=== PATIENT | male | born 1940 | race Caucasian/White ===

== ENCOUNTER 2017-05-25 06:22 | Inpatient (IN) | payer OTHER ==
[~2017-05-25] VITALS: Ht 172.7 cm; Wt 86.3 kg
--- NOTE | ~2017-05-25 | CT4 ---
[facility] A Service of [facility] RADIOLOGY TEXT RESULTS PATIENT: DOMINIQUE KEATING LOCATION: [facility] 564-01 : 39 UNIT #: [id number] AGE: [address]: James Kaufman MD SEX: M ORDER DR: [id number] [facility] [address] [place], [place] [address] [id number] I MR#: [id number] Acc #: [id number] NAME: DOMINIQUE KEATING. : 1940 SEX: M STUDY DATE/TIME: 05/25/2017 17:58 UNIT: [facility] ROOM: [facility] STUDY DESCRIPTION: CT Abd and Pelv Wo Cont Attending Physician: James Kaufman M.D. Referring Physician: James Kaufman M.D. Ordering Physician: Goran Castro M.D. Primary Care Physician: Inderjit Garibay M.D. MEDICAL IMAGING REPORT This report is preliminary unless electronic signature is present EXAM Abdomen and pelvis CT scan without contrast HISTORY Hematuria today. Patient had a heart stent put in today, heart catheter procedure today. History of hypertension and appendectomy. TECHNIQUE CT abdomen and pelvis was performed without IV or oral contrast media. I believe this was intended to be a urinary tract stone protocol study but there is still IV contrast media being excreted from the patient's recent cardiac catheterization and therefore, this study cannot evaluate for urinary tract calculus disease. The study should be repeated if this is the concern after the contrast is clear. This CT exam was performed with one or more of the following radiation dose reduction techniques: automatic exposure control, adjustment of mA and/or kV according to patient size, and iterative reconstruction. COMPARISON STUDIES Comparison study is from 2009. FINDINGS There is infiltrate in the left lower lobe which could be aspiration or pneumonia, possibly a small amount of atelectasis. A smaller infiltrate is seen at the right base. There is a small dependent pleural effusion on the left. Tiny dependent pleural effusion on the right. There are coronary artery calcifications present. Evaluation of the unenhanced abdomen shows a loop of colon interposed anterior to the liver. Liver is otherwise unremarkable on this unenhanced exam. The gallbladder, spleen and adrenal glands are unremarkable. [facility] A Service of [facility] RADIOLOGY TEXT RESULTS PATIENT: DOMINIQUE KEATING LOCATION: [facility] 564-01 : 39 UNIT #: [id number] AGE: [address]: James Kaufman MD SEX: M ORDER DR: Stomach is quite distended with debris and fluid. Please correlate for any clinical concern for gastroparesis. There is contrast in the right renal collecting system. There may also be some parapelvic cysts. There is no suspicion for hydronephrosis. On the left, there is a large parapelvic cyst, about 5.4 cm in diameter. There is a second exophytic cyst from the lower pole left kidney, about 4.4 cm in diameter. The left renal collecting system shows contrast. There is some mass effect on the collecting systems by the large parapelvic cysts but there is no hydronephrosis. There are extensive atherosclerotic vascular calcifications present. 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 Evaluation of the pelvis shows marked enlargement of the prostate gland protruding into the bladder base. Measurements are at least 7.1 cm SI dimension, 6.4 cm ML dimension, 5.9 cm AP dimension. Further evaluation is recommended by service. There is a large amount of stool in the rectum. There is no free fluid in the pelvis. The colon is somewhat redundant. Patient has had an appendectomy by history. There is nothing to suggest small bowel obstruction. Small fat-containing inguinal hernias appreciated bilaterally. There is asymmetric atrophy of the musculature right-sided gluteus psoas region consistent with polio history. The pancreas is partially fatty replaced. Considerable degenerative change in the lumbar spine with exaggerated lumbar lordosis. Also, levoconvex scoliosis. No free air or drainable fluid collection is suspected. IMPRESSION 1. The study is ordered as a urinary tract stone protocol, presumably to evaluate for stone disease in the setting of hematuria. Unfortunately, there is no IV contrast media in the collecting systems and bladder from the patient's recent cardiac catheterization, so this study does not evaluate for stone disease. If this is the concern, the study should be repeated without contrast after the contrast has cleared. 2. Prostate gland is markedly enlarged elevating the bladder base and protruding into the bladder base with lobulation. This could be due to prostatic hyperplasia but foci of malignancy not excluded. Please evaluate further clinically. 3. Airspace disease seen at the left base which is patchy and aspiration or pneumonia is in the differential. Small amount of airspace disease at the right base. Small left and tiny right dependent pleural effusions present. 4. Study is limited by the lack of IV and oral contrast media for evaluation for pathology other than urinary tract calculus disease. Patient is post-appendectomy by history. There is nothing to suggest bowel obstruction, though there is a large amount of stool in the rectum. 5. Stomach is enlarged with debris. Please correlate for history or recent meal versus concern for gastroparesis. 6. Asymmetric muscular atrophy right side psoas and gluteus musculature consistent with known history of right lower extremity involvement with polio. Extensive degenerative change of the spine. [facility]. [facility] A Service of [facility] RADIOLOGY TEXT RESULTS PATIENT: DOMINIQUE KEATING LOCATION: [place] [address] : 39 UNIT #: [id number] AGE: [address]: James Kaufman MD SEX: M ORDER DR: 7. Large left renal cysts. STAT * RESULT Dictated by... Savanna Denise M.D. THIS IS AN ELECTRONICALLY VERIFIED REPORT Savanna Denise M.D. at 05/25/2017 10:59 PM BRI/aishwarya TD: 05/25/2017 19:28 JOB #: [id number] MEDICAL IMAGING REPORT Page 1 of 1 COPY
--- NOTE | ~2017-05-25 | TH ---
Unit #: [id number] #: [id number] Patient: JAY KEATING [id number] [address] [address] [id number] I MR#: [id number] NAME: DOMINIQUE KEATING. : 1940 SEX: M STUDY DATE/TIME: 05/25/2017 UNIT: [facility] ROOM: 564 STUDY DESCRIPTION: Lexiscan stress test - Nuclear Attending Physician: James Kaufman M.D. Referring Physician: James Kaufman M.D. Primary Care Physician: Inderjit Garibay M.D. CARDIOLOGY REPORT PROCEDURE PERFORMED Lexiscan Cardiolite stress test - Nuclear portion. PROCEDURE Using technetium 99m-labeled Cardiolite, rest and stress SPECT images were obtained. Multiple SPECT images were obtained in various views, including horizontal and vertical long axis and short axis views of the left ventricle. Images were obtained by gated SPECT method. The patient was administered 10.47 mCi of Cardiolite at rest. The patient was administered 32.2 mCi of Cardiolite after Lexiscan infusion was completed. On the stress images, there is an extremely large area of severely decreased tracer uptake activity involving the anterolateral and the entire lateral wall of the left ventricle. The rest images show normal perfusion. Comparing the rest and stress images, there is an extremely large area of stress-induced ischemia involving the anterolateral and the lateral wall of the left ventricle. The left ventricular ejection fraction is calculated to be 66%. There is septal hypokinesis and lateral wall hypokinesis noted. The left ventricular cavity is moderately dilated post stress. CONCLUSION 1. Suspicion for an extremely large area of stress-induced ischemia involving the anterolateral and the lateral wall of the left ventricle. 2. The left ventricular ejection fraction is calculated to be 66%. 3. There is septal and lateral wall hypokinesis noted. 4. There is significant left ventricular cavity dilatation post stress. 5. High suspicion for significant coronary artery disease. The patient is being [facility] for cardiac catheterization. Dictated by.Brenda Castellanos TD: 05/25/2017 16:20 JOB #: [id number] Unit #: [id number] #: [id number] Patient: RISHABHJAY Chet CARDIOLOGY REPORT Page 1 of 1 X Clementina Garcia MD <ELECTRONICALLY SIGNED> 06/30/17 1524 CARDIOLOGY REPORT
--- NOTE | ~2017-05-25 | CO ---
Unit #: [id number] #: [id number] Patient: DOMINIQUE KEATING [id number] [address] [place], [place] [address] [id number] I MR#: [id number] NAME: DOMINIQUE KEATING. ROOM: 564 Age: 76 Sex: M Admission Date: 05/25/2017 : 1940 Attending Physician: James Kaufman M.D. Primary Care Physician: Inderjit Garibay M.D. Consultation Date: 05/26/2017 CONSULTATION REPORT REASON FOR CONSULTATION Gross hematuria. 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 He has prostatism, takes tamsulosin 0.4 mg daily, but had no new voiding symptoms and has had no fever, chills or dysuria. He gets up two to three times at night, has occasional urgency but by day no hesitancy and a good stream. He did see my partner, Dr. Talamantes, several months ago for a PSA of 4, thought best observed. He has seen me through the previous care of his who now has Alzheimer's. PAST MEDICAL HISTORY 1. Coronary disease. 2. Hypertension. 3. Arthritis. 4. Hyperlipidemia. 5. Polio, right lower extremity. SURGERIES 1. Appendectomy. 2. CABG in 1994. MEDICATIONS Medications on admission: 1. Coumadin. 2. Fish oil. 3. Co enzyme Q. 4. Lopressor. 5. Lipitor. 6. Flomax as noted. 7. Now he has been started on Plavix also. ALLERGIES None known. FAMILY HISTORY Negative for prostate cancer. SOCIAL HISTORY Unit #: [id number] #: [id number] Patient: DOMINIQUE KEATING , nonsmoker. REVIEW OF SYSTEMS Arthritis of the shoulder, sleep apnea and the above complaints. PHYSICAL EXAMINATION GENERAL: The patient is a well appearing, tall man with a right leg brace. ABDOMEN: Soft, nontender. PHALLUS: Normal circumcised testes, normal descended. He requested a digital exam and prostate is indeed firm in the right lobe asymmetrically. DIAGNOSTIC STUDIES LABORATORY: Urinalysis - 5-10 RBCs, otherwise normal. BUN 20, creatinine 1.2, INR 1.9 down from 2.3. Platelets 93, hemoglobin 13, PSA was 4.14 on 05/27/14 also. IMAGING: CT scan without contrast shows no clear stone, mass or hydronephrosis and does show a markedly large prostate. Residual contrast in the collecting system and bladder, however, does not exclude stone. IMPRESSION 1. Transient gross hematuria ascribable to high dose anticoagulation at this point but ideally evaluation should be completed. 2. Abnormal digital examination, history of elevated PSA at advanced age and certainly chronic anticoagulation and now Plavix contraindicating any contemplated biopsy. PLAN May discharge home from viewpoint. Will tentatively plan to repeat scan without and with IV contrast, creatinine permitting. See patient back for cystoscopic exam and possible further PSA followup. Thank you, James, for the consultation. Dictated by... Goran Castro M.D. JAZMIN/franklyn TD: 05/27/2017 10:37 JOB #: [id number] CONSULTATION REPORT Page 1 of 1 X Goran Castro MD X CONSULTATION REPORT
--- NOTE | ~2017-05-25 | EKG ---
PATIENT: DOMINIQUE KEATING UNIT #: [id number] Ventricular Rate: 56 BPM Atrial Rate: 56 BPM P-R Interval: 146 ms QRS Duration: 80 ms Q-T Interval: 488 ms QTC Calculation(Bezet): 470 ms P [place]: 30 degrees Calculated R [place]: 20 degrees Calculated T [place]: 4 degrees Diagnosis Line: Sinus bradycardia with sinus arrhythmia Diagnosis Line: Nonspecific ST and T wave abnormality Diagnosis Line: Prolonged QT Diagnosis Line: Abnormal ECG Diagnosis Line: When compared with ECG of 25-MAY-2017 11:48, Diagnosis Line: (unconfirmed) Diagnosis Line: Premature atrial complexes are no longer Present Diagnosis Line: Confirmed by HOWARD IBRAHIM MD ([id number]) on Diagnosis Line: 05/25/2017 10:49:50 PM INTERPRETING MD: JB
--- NOTE | ~2017-05-25 | ST ---
Unit #: [id number] #: [id number] Patient: DOMINIQUE KEATING [id number] [place] [id number] [facility] [place], [place] [address] [id number] O MR#: [id number] NAME: DOMINIQUE KEATING. : 1940 SEX: M STUDY DATE/TIME: 05/25/2017 UNIT: [facility] ROOM: STUDY DESCRIPTION: Lexiscan stress test Attending Physician: James Kaufman M.D. Referring Physician: James Kaufman M.D. Primary Care Physician: Inderjit Garibay M.D. CARDIOLOGY REPORT PROCEDURE PERFORMED Lexiscan Cardiolite stress test. REPORT Baseline EKG - Normal sinus rhythm with ventricular rate 75 beats per minute, left atrial abnormality, nondiagnostic Q waves in inferior leads, T wave inversion in inferior leads with some nonspecific ST-T wave abnormalities in lateral leads. Lexiscan is a 4-minute test with Lexiscan being injected within the first minute, followed by Cardiolite. Within 1 minute and 15 seconds, the patient started having long runs of ventricular tachycardia as long as 20 beats. The patient's blood pressure decreased to 75/80. MET team was called. IV amiodarone, 150 mg, bolus was given, followed by amiodarone drip per protocol. Two grams of IV mag was given. Labs have been drawn to check all of his electrolytes and CBC. The patient also had a normal saline bolus of 500 mL. His blood pressure went to 126/77 mmHg. Within 10 minutes into the test, his rhythm stabilized. He remained in normal sinus rhythm with frequent premature atrial contractions and occasional premature ventricular contractions. He continued to have T wave inversion in inferior leads and also some T wave inversion, downsloping in the anterolateral leads. The patient denied having any chest pain, but he was lightheaded and weak, especially when he was having the long runs of ventricular tachycardia. Cardiolite was injected after Lexiscan within the first minute of the test. Radionuclide test pending. Please correlate with nuclear images. The maximum blood pressure response was 154/74. Maximum heart rate was 190 beats per minute, and that was when he was having ventricular tachycardia. The plan is for the patient to have a heart catheterization later today by Dr. Ummat. Further recommendations pending. Dictated by... Mami Flowers A.P.R.N. for Brenda Mclain/yann TD: 05/25/2017 11:16 JOB #: [id number] Unit #: [id number] #: [id number] Patient: DOMINIQUE KEATING CARDIOLOGY REPORT Page 1 of 1 X Mami Flowers APRN CARDIOLOGY REPORT
--- NOTE | ~2017-05-25 | DS ---
Unit #: [id number] #: [id number] Patient: DOMINIQUE KEATING [id number] [address] [address] [id number] I MR#: [id number] NAME: DOMINIQUE KEATING. ROOM: 564 Age: 76 Sex: M Admission Date: 05/25/2017 : 1940 Discharge Date: 05/27/2017 Attending Physician: James Kaufman M.D. Referring Physician: James Kaufman M.D. Primary Care Physician: Inderjit Garibay M.D. DISCHARGE SUMMARY DISCHARGE DIAGNOSES 1. Ventricular tachycardiac, sustained and nonsustained. 2. History of paroxysmal atrial fibrillation and paroxysmal supraventricular tachycardiac. 3. Coronary artery disease, status post coronary artery bypass graft x4, 23 years ago with left internal mammary artery to left anterior descending, saphenous vein graft to lateral marginal branch, saphenous vein graft to the posterior marginal branch, and saphenous vein graft to posterior descending artery of right coronary artery. 4. Status post cardiac catheterization with percutaneous coronary intervention and stent to obtuse marginal 2 on 05/25/2017. 5. Hypertension. 6. Hyperlipidemia. 7. Diabetes mellitus. 8. Ejection fraction 45% to 50%. 9. Benign prostate hypertrophy. 10. History of left carotid stenosis. DISCHARGE MEDICATIONS 1. Flomax 0.4 mg p.o. once a day. 2. Amiodarone 400 mg p.o. twice a day x7 days and then 200 mg p.o. twice a day x7 days and then 200 mg once a day. 3. Coumadin 5 mg p.o. every Tuesday, Tuesday, Tuesday, , Tuesday. 4. Metoprolol 50 mg p.o. twice a day. 5. Lipitor 40 mg p.o. at bedtime. 6. Fish oil 1,000 mg once a day. 7. CoQ10 100 mg p.o. daily. 8. Aspirin 81 mg p.o. daily. 9. Plavix 75 mg p.o. daily. HOSPITAL COURSE This is a 76-year-old male well known to Dr. Kaufman with a past history of coronary artery disease, status post CABG x4 approximately 23 years ago, paroxysmal AFib, hypertension, hyperlipidemia and cardiac cath in 2003, which showed patent grafts. He was seen in our office on 05/17/2017 with complaints of palpitations and at that time EKG showed PVCs and PACs with short runs of atrial fibrillation. He was scheduled for an outpatient Lexiscan Cardiolite stress test. On 05/25/2017 he presented for outpatient stress test. Approximately one minute after lexiscan was injected, he experienced long runs of nonsustained V-tach. He became lightheaded and weak and his blood pressure was low at 75/42. He continued to have intermittent runs of detox. A MET team alert was called. He was given an amiodarone bolus of 150 mg x1 and an amiodarone drip was started. He was also given mag sulfate IV [address] Garcia Unit #: [id number] #: [id number] Patient: DOMINIQUE KEATING and Dr. Kaufman evaluated him at that time. After a few minutes he maintains sinus rhythm with frequent PVCs. It was decided to take him to the [facility] [place] [facility] to evaluate for causes of V-tach. At that time a cardiac cath showed GRADY graft to LAD is widely patent and vein graft to distal right coronary artery is widely patent, vein graft to posterior marginal branch of circumflex shows 80% stenosis, and wide graft to second marginal branch was occluded. He underwent direct stenting of vein graft to posterior marginal branch of circumflex with a 4.0 x 60 mm drug-eluting Synergy stent, which reduced the 80% stenosis to the present stenosis. YAZMIN 3 flow was reserved and then a posterior marginal branch. Post cath he was admitted for observation and maintained on amiodarone drip. He did not have any recurrent V-tach. Amiodarone drip was discharged on 05/26/2017 and he was started on p.o. amiodarone. He experienced some gross hematuria the evening after the cardiac cath. Urology was consulted. A CT of the abdomen and pelvis was done, which showed an enlarged prostate but it could not determine whether there were stones present due to the presence of contrast from the cardiac cath. Today on 05/27/2017 he has had no recurrence of arrhythmias. He has not chest pain. He has no more hematuria. Urology said he is stable for discharge home from their viewpoint. We will discharge him home today. He will followup with Dr. Kaufman on Tuesday07/11/2017 at 2:30. We will continue his home medications including Coumadin. He will have his PT and INR checked in our office next . He will have a BMP in our office on 06/02/2017. He says followup with urology per their recommendations. Followup with his PCP in one to two weeks. ASSESSMENT VITAL SIGNS: Temp 98.8, heart rate 51, respiratory rate 18, blood pressure 139/64. GENERAL: Alert and oriented 76-year-old male, up in chair in no acute distress. HEART: S1 and S2. Regular rate and rhythm. No significant murmurs, rubs or gallops. LUNGS: Clear. ABDOMEN: Soft, nontender, nondistended. EXTREMITIES: Pulses are palpable. No pedal edema. His last radial calf site is soft and dry with no hematoma. DIAGNOSTIC STUDIES LABORATORY STUDIES: Sodium 143, potassium 5.1, chloride 108, BUN 27, creatinine 1.3, glucose 93, hemoglobin 13.8, hematocrit 40.6, white blood cell count 5, platelets 95, PT 21.4, and INR 2. TELEMETRY: Sinus bradycardia with rates 50 to 59. DISCHARGE INSTRUCTIONS 1. Discharge home. 2. Followup with Dr. Kaufman on 07/11/2017, 2:30 p.m. 3. Have PT, INR, and BMP checked in our office on 06/02/2017. 4. Followup with PCP in one to two weeks. 5. Followup with urology as recommended. 6. Consult cardiac rehab. 7. Home medications per medication reconciliation sheet. Prescriptions were provided as needed. 8. The patient was educated on the importance of continuing on dual antiplatelet therapy with aspirin and Plavix for at least one year. He is also going to be continued on Coumadin therapy with PT and INR checks. He verbalized understanding of this. Unit #: [id number] #: [id number] Patient: DOMINIQUE KEATING 9. Post cath instructions given to patient. Dictated by... Eula Tucker APRN for Brenda Dominguez/yeyo TD: 05/30/2017 10:12 JOB #: [id number] DISCHARGE SUMMARY Page 1 of 1 X X DISCHARGE SUMMARY
--- NOTE | ~2017-05-25 | EKG ---
PATIENT: DOMINIQUE KEATING UNIT #: [id number] Ventricular Rate: 53 BPM Atrial Rate: 53 BPM P-R Interval: 144 ms QRS Duration: 84 ms Q-T Interval: 506 ms QTC Calculation(Bezet): 474 ms P [place]: 33 degrees Calculated R [place]: 27 degrees Calculated T [place]: -7 degrees Diagnosis Line: Sinus bradycardia with sinus arrhythmia Diagnosis Line: Otherwise normal ECG Diagnosis Line: When compared with ECG of 25-MAY-2017 14:32, Diagnosis Line: No significant change was found Diagnosis Line: Confirmed by JANY FAIRBANKS MD ([id number]) on 05/26/2017 Diagnosis Line: 6:52:41 PM INTERPRETING MD: TIKI COSTA
--- NOTE | ~2017-05-25 | EKG ---
PATIENT: DOMINIQUE KEATING UNIT #: [id number] Ventricular Rate: 62 BPM Atrial Rate: 62 BPM P-R Interval: 150 ms QRS Duration: 80 ms Q-T Interval: 466 ms QTC Calculation(Bezet): 472 ms P [place]: 43 degrees Calculated R [place]: 19 degrees Calculated T [place]: 29 degrees Diagnosis Line: Sinus rhythm with Premature atrial complexes Diagnosis Line: Otherwise normal ECG Diagnosis Line: When compared with ECG of 11-FEB-2015 08:06, Diagnosis Line: Premature atrial complexes are now Present Diagnosis Line: Non-specific change in ST segment in Inferior Diagnosis Line: leads Diagnosis Line: Confirmed by HOWARD IBRAHIM MD ([id number]) on Diagnosis Line: 05/25/2017 10:46:32 PM INTERPRETING MD: JB
[~2017-05-25 06:22] MED LIST: ARIXTRA SUBQ; ASPIRIN81 M1 PO; AZOR 5-20 MG T1 EACH PO; BENICAR 40 MG PO; CICLOPIROX TOP; COUMADIN 5 MG PO; FISH OIL 1,001000 M1 PO; FLOMAX0.4 M1 DOB; FLONASE 0.05% N16 G1; NADOLOL40 MG PO; ZYLOPRIM PO
[2017-05-25 09:50] LABS: HEMATOCRIT 41.7 % (38.0-50.0); HEMOGLOBIN 14.1 gm/dL (13.0-16.0); MEAN CELL VOLUME 100.4 FL (83-96); MEAN CORPUSCULAR HEMOGLOBIN 34.1 PG (28-34); MEAN CORPUSCULAR HGB CONC 33.9 g/dL (30-36); MEAN PLATELET VOLUME 8.6 FL (6.5-11.5); RED BLOOD COUNT 4.15 X10e (3.90-5.60); RED CELL DISTRIBUTION WIDTH 14.6 % (11.0-15.5)
[2017-05-25 09:59] LABS: INR 2.3; PARTIAL THROMBOPLASTIN TIME 32.6 SECONDS (23.5-31.3); PROTHROMBIN TIME (PATIENT) 25.3 SECONDS (10.0-11.7)
[2017-05-25 10:14] LABS: BUN/CREATININE RATIO 19.16; CALCIUM SERUM 8.9 mg/dL (8.4-10.2); CREATININE SERUM 1.2 mg/dL (0.6-1.4); MAGNESIUM 2.1 mg/dL (1.6-3.0); POTASSIUM 4.1 mmol/L (3.5-5.1)
[2017-05-25] MEDS ORDERED: COUMADIN7.5 MG PO (11:48)
[2017-05-25] MEDS ORDERED: FISH OIL 1,0001 EAC3 PO (11:48)
[2017-05-25] MEDS ORDERED: LIPITOR PO (11:49)
[2017-05-25] MEDS ORDERED: COQ-10100 MG PO (11:49)
[2017-05-25] MEDS ORDERED: LOPRESSOR PO (11:49)
[2017-05-25] MEDS ORDERED: FLOMAX0.4 M1 PO (11:50)
[2017-05-25 20:26] LABS: ANGIO %MB 7.4 % (0.0-4.0)
[2017-05-26 06:40] LABS: URINE APPEARANCE CLEAR; URINE BILIRUBIN NEG (NEG); URINE BLOOD 2+ (NEG); URINE COLOR YELLOW; URINE GLUCOSE NEG (NEG); URINE KETONE NEG (NEG); URINE LEUKOCYTE ESTERASE NEG (NEG); URINE NITRATE NEG (NEG); URINE PH 7.5 (5-8); URINE PROTEIN NEG (NEG)
[2017-05-26 06:42] LABS: URINE BACTERIA AUWI NEG (NEGATIVE); URINE SQUAMOUS EPITHELIAL CELL NONE SEEN /[HPF]; UWBCS1 AUWI 0-2 (0-5)
[2017-05-26 06:57] LABS: CULTURE INDICATED? NO
[2017-05-26 08:15] LABS: HEMATOCRIT 37.9 % (38.0-50.0); HEMOGLOBIN 13.1 gm/dL (13.0-16.0); MEAN CELL VOLUME 100.3 FL (83-96); MEAN CORPUSCULAR HEMOGLOBIN 34.6 PG (28-34); MEAN CORPUSCULAR HGB CONC 34.5 g/dL (30-36); MEAN PLATELET VOLUME 8.5 FL (6.5-11.5); RED BLOOD COUNT 3.78 X10e (3.90-5.60); WHITE BLOOD COUNT 4.8 X10e3 (4.0-10.5)
[2017-05-26 08:31] LABS: INR 1.9
[2017-05-26 08:52] LABS: ALBUMIN SERUM 3.4 g/dL (3.5-5.0); BILIRUBIN,TOTAL 1.4 mg/dL (0.2-2.0); BUN/CREATININE RATIO 16.66; CREATININE SERUM 1.2 mg/dL (0.6-1.4); POTASSIUM 4.6 mmol/L (3.5-5.1)
[2017-05-26 09:34] LABS: ANGIO %MB 3.3 % (0.0-4.0)
[2017-05-27 06:15] LABS: BASOPHIL# 0.1 X10e3 (0-0.3); BASOPHIL% 1.1 % (0-2.5); EOSINOPHIL# 0.3 X10e3 (0-0.7); EOSINOPHIL% 5.4 % (0.0-7.0); HEMATOCRIT 40.6 % (38.0-50.0); HEMOGLOBIN 13.8 gm/dL (13.0-16.0); LYMPHOCYTE% 20.6 % (17.0-45.0); MEAN CELL VOLUME 100.8 FL (83-96); MEAN CORPUSCULAR HEMOGLOBIN 34.3 PG (28-34); MEAN PLATELET VOLUME 8.6 FL (6.5-11.5); MONOCYTE# 0.4 X10e3 (0-1.0); MONOCYTE% 8.8 % (3.0-12.0); NEUTROPHIL# 3.2 X10e3 (1.5-7.1); NEUTROPHIL% 64.1 % (40-75); PLATELET COUNT 95 X10e3 (140-420); RED BLOOD COUNT 4.03 X10e (3.90-5.60); RED CELL DISTRIBUTION WIDTH 14.3 % (11.0-15.5)
[2017-05-27 06:28] LABS: DIFF IND NO
[2017-05-27 06:30] LABS: PROTHROMBIN TIME (PATIENT) 21.4 SECONDS (10.0-11.7)
[2017-05-27 06:53] LABS: BUN/CREATININE RATIO 20.76; CALCIUM SERUM 9.4 mg/dL (8.4-10.2); CREATININE SERUM 1.3 mg/dL (0.6-1.4); GLOM FILT RATE Estimated 52.6 mL/min (>60); POTASSIUM 5.1 mmol/L (3.5-5.1)
[2017-05-27] MEDS ORDERED: COUMADIN5 MG PO (10:53)
[2017-05-27] MEDS ORDERED: ASPIRIN81 MG PO (10:54)
[2017-05-27] MEDS ORDERED: CLOPIDOGREL75 MG PO (10:54)
[2017-05-27] MEDS ORDERED: AMIODARONE HCL400 MG PO (10:56)
[2017-05-27] MEDS ORDERED: AMIODARONE HCL200 MG PO ×2 (10:57→10:58)
== END 2017-05-27 13:50 | disposition home or self-care (01) | DRG 247 ==
LOC: CNUC 06:22 → C5C 10:20 → CNUC 13:59 → C5C 13:59
PROVIDERS: Internal Medicine Cardiovascular Disease; Nurse Practitioner
PROC: 4A023N7 Measurement of Cardiac Sampling and Pressure, Left Heart, Percutaneous Approach (ICD-10-PCS; principal; 2017-05-25)
PROC: 027034Z Dilation of Coronary Artery, One Artery with Drug-eluting Intraluminal Device, Percutaneous Approach (ICD-10-PCS; 2017-05-25)
PROC: B213YZZ Fluoroscopy of Multiple Coronary Artery Bypass Grafts using Other Contrast (ICD-10-PCS; 2017-05-25)
PROC: B211YZZ Fluoroscopy of Multiple Coronary Arteries using Other Contrast (ICD-10-PCS; 2017-05-25)
PROC: 30233L1 Transfusion of Nonautologous Fresh Plasma into Peripheral Vein, Percutaneous Approach (ICD-10-PCS; 2017-05-25)
PROC: 30233K1 Transfusion of Nonautologous Frozen Plasma into Peripheral Vein, Percutaneous Approach (ICD-10-PCS; 2017-05-25)
DX: I47.1 Supraventricular tachycardia (principal); I48.0 Paroxysmal atrial fibrillation; I25.810 Atherosclerosis of coronary artery bypass graft(s) without angina pectoris; E11.9 Type 2 diabetes mellitus without complications; I25.119 Atherosclerotic heart disease of native coronary artery with unspecified angina pectoris; Z86.711 Personal history of pulmonary embolism; Z79.01 Long term (current) use of anticoagulants; Z95.5 Presence of coronary angioplasty implant and graft; I10 Essential (primary) hypertension; E78.5 Hyperlipidemia, unspecified; R31.0 Gross hematuria; M13.819 Other specified arthritis, unspecified shoulder; N40.0 Benign prostatic hyperplasia without lower urinary tract symptoms; I65.22 Occlusion and stenosis of left carotid artery; N28.9 Disorder of kidney and ureter, unspecified
CPT/HCPCS: 74176; 78452; 80048; 80053; 80061; 81003; 82550; 82553; 83735; 85025; 85027; 85347; 85610; 85730; 86900; 86901; 93005; 93017; 99152; 99153; A9500; C1769; C1874; C1887; C1894; J0153; J0282; J1644; J2250; J2370; J2785; J3010; J3475; J3490; P9059

== ENCOUNTER → 2017-06-07 | Outpatient (CLI) | payer OTHER ==
[~2017-06-07] MED LIST changes: +AMIODARONE HCL200 MG PO; +AMIODARONE HCL400 MG PO; +ASPIRIN81 MG PO; +CLOPIDOGREL75 MG PO; +COQ-10100 MG PO; +COUMADIN5 MG PO; +COUMADIN7.5 MG PO; +FISH OIL 1,0001 EAC3 PO; +FLOMAX0.4 M1 PO; +LIPITOR PO; +LOPRESSOR PO
--- NOTE | ~2017-06-07 | US37 ---
[facility] A Service of [facility] RADIOLOGY TEXT RESULTS PATIENT: DOMINIQUE KEATING LOCATION: SNIV : 39 UNIT #: [id number] AGE: [address]: ADELAIDE GARIBAY MD (INT MED) SEX: M ORDER DR: [id number] [address] [address] [id number] O MR#: [id number] [facility] #: [id number] NAME: DOMINIQUE KEATING. : 1940 SEX: M STUDY DATE/TIME: 06/07/2017 10:23 UNIT: SNIV ROOM: STUDY DESCRIPTION: US Carotid W/Doppler Bilateral Attending Physician: Adelaide Garibay M.D. Referring Physician: Adelaide Garibay M.D. Ordering Physician: Adelaide Garibay M.D. Primary Care Physician: Adelaide Garibay M.D. MEDICAL IMAGING REPORT This report is preliminary unless electronic signature is present. DATE OF EXAM 06/07/2017 REASON FOR EXAM Carotid stenosis. EXAM Bilateral carotid Doppler. FINDINGS The right common, internal and external carotid arteries are patent. There is diffuse mild atherosclerotic heterogeneous plaque throughout. The velocity of the common carotid artery is 110 cm/sec. Peak systolic velocity of the right proximal and internal carotid artery is 80 cm/sec with an end-diastolic velocity of 17 cm/sec for an ICA:CCA ratio of 0.73. External carotid artery velocity of 77 cm/sec. The vertebral artery is visualized with an antegrade flow. The left common, internal and external carotid arteries are patent. There is mild diffuse heterogeneous plaque throughout. The velocity of the common carotid artery is 118 cm/sec. Peak systolic velocity of the left proximal internal carotid artery is 86 cm/sec with an end-diastolic velocity of 21 cm/sec for an ICA:CCA ratio of 0.73. External carotid artery with a velocity of 130 cm/sec. the vertebral artery is visualized with antegrade flow. IMPRESSION 1. Less than 50% stenosis of the right and left internal carotid arteries. 2. No stenosis of the external carotid arteries. 3. Antegrade flow of the vertebral arteries. STS. [facility] A Service of [facility] RADIOLOGY TEXT RESULTS PATIENT: DOMINIQUE KEATING LOCATION: SNIV : 39 UNIT #: [id number] AGE: [address]: ADELAIDE GARIBAY MD (INT MED) SEX: M ORDER DR: Dictated by... Keke Mancera M.D. THIS IS AN ELECTRONICALLY VERIFIED REPORT Keke Mancera M.D. at 06/09/2017 7:33 AM PAT/jose angel TD: 06/07/2017 16:49 JOB #: [id number] MEDICAL IMAGING REPORT Page 1 of 1
== END | disposition home or self-care (01) ==
LOC: SNIV 09:44
DX: I65.22 Occlusion and stenosis of left carotid artery (principal); I65.23 Occlusion and stenosis of bilateral carotid arteries
CPT/HCPCS: 93880

== ENCOUNTER → 2017-06-15 | Outpatient (CLI) | payer OTHER ==
[2017-06-15 11:15] LABS: BUN/CREATININE RATIO 17.14; CALCIUM SERUM 9.1 mg/dL (8.4-10.2); CREATININE SERUM 1.4 mg/dL (0.6-1.4); GLOM FILT RATE Estimated 48.1 mL/min (>60); POTASSIUM 4.9 mmol/L (3.5-5.1)
== END | disposition home or self-care (01) ==
LOC: CCAT 10:10
PROVIDERS: Urology
DX: R31.0 Gross hematuria (principal)
CPT/HCPCS: 36415; 80048

== ENCOUNTER → 2017-06-20 | Outpatient (CLI) | payer OTHER ==
--- NOTE | ~2017-06-20 | CT3 ---
[facility] A Service of [facility] RADIOLOGY TEXT RESULTS PATIENT: JAY KEATING LOCATION: CCAT : 39 UNIT #: [id number] AGE: [address]: Goran Castro MD SEX: M ORDER DR: [id number] [facility] [address] [place], [place] [address] [id number] O MR#: [id number] Acc #: [id number] NAME: JAY KEATING : 1940 SEX: M STUDY DATE/TIME: 06/20/2017 09:43 UNIT: CCAT ROOM: STUDY DESCRIPTION: CT Abd and Pelv WWo Cont Attending Physician: Goran Castro M.D. Referring Physician: Goran Castro M.D. Ordering Physician: Goran Castro M.D. Primary Care Physician: Inderjit Garibay M.D. MEDICAL IMAGING REPORT This report is preliminary unless electronic signature is present EXAM CT abdomen and pelvis without and with contrast, 06/20/2017, 0943 hours. HISTORY 76-year-old man with history of hematuria for 2 weeks. Patient on blood thinners for deep venous thrombosis. COMPARISON CT abdomen and pelvis, 05/25/2017. TECHNIQUE Helical noncontrasted images were obtained from the lung bases through the pubic symphysis. Postcontrast series were obtained through the abdomen in the arterial phase, 90-second delayed phase images with 5-minute delayed postcontrast images through the abdomen and pelvis. Contrast was Isovue-370 100 mL IV. Total exam DLP 3686 mGy-cm. This CT exam was performed with one or more of the following radiation dose reduction techniques: automatic exposure control, adjustment of mA and/or kV according to patient size, and iterative reconstruction. FINDINGS Images through the lung bases demonstrate median sternotomy change and some dependent linear density at the left base consistent with atelectasis or scar unchanged. There is no effusion or nodule. The precontrast images through the abdomen and pelvis demonstrate clearing of the previous contrast from cardiac catheterization seen on 05/25/2017. No renal or ureteral calculi are seen. No gallstones are seen. Postcontrast imaging demonstrates a normal appearance to the liver, spleen, pancreas, gallbladder and bile ducts. The adrenal glands are normal. The abdominal aorta is atherosclerotic but normal in caliber. The stomach, small bowel are normal. No colonic lesions are seen. [facility] A Service of [facility] RADIOLOGY TEXT RESULTS PATIENT: JAY KEATING LOCATION: [facility] : 39 UNIT #: [id number] AGE: [address]: Goran Castro MD SEX: M ORDER DR: The right kidney appears normal on the precontrast, postcontrast images. The left kidney demonstrates a low-density lesion measuring 5.2 x 3.3 cm consistent with a parapelvic cyst. There is an exophytic cyst from the posterolateral lower pole left kidney measuring 4.5 x 4.0 cm and 0 Hounsfield units. There is a very small low-density lesion in the anterior upper pole left kidney slightly lateral measuring 3 Hounsfield units and only 1.1 cm consistent with a very small simple cyst. There is no dilatation of the renal collecting systems or filling defects in the renal collecting systems. The bladder is moderately well distended and not thick-walled. Again demonstrated is a very large prostate gland slightly heterogeneous similar to prior study. It measures 6.8 x 6.1 x 7.5 cm and invaginates into the bladder base. Multilevel degenerative changes in the lumbar spine are stable. IMPRESSION 1. Multiphase imaging of the kidneys demonstrates no renal or ureteral calculi. 2. The right kidney appears normal postcontrast. 3. The left kidney demonstrates a 5.2 cm parapelvic cyst, a 4.5 cm posterolateral lower pole cyst and a 1.1 cm cyst in the lateral upper pole. No solid left renal lesions. 4. The bladder appears normal. 5. Large prostate again noted measuring 6.8 x 6.1 x 7.5 cm. This towers near to the bladder base. No bladder wall thickening is seen. Dictated by... Sahara Angel M.D. THIS IS AN ELECTRONICALLY VERIFIED REPORT Sahara Angel M.D. at 06/21/2017 9:26 AM ANGELA/jose angel RHOADES: 06/20/2017 11:58 TD: 06/20/2017 23:50 JOB #: [id number] MEDICAL IMAGING REPORT Page 1 of 1 COPY
[2017-06-20 07:44] LABS: CALCIUM SERUM 8.8 mg/dL (8.4-10.2); CREATININE SERUM 1.4 mg/dL (0.6-1.4); GLOM FILT RATE Estimated 48.1 mL/min (>60); POTASSIUM 4.7 mmol/L (3.5-5.1)
== END | disposition home or self-care (01) ==
LOC: CCAT 06:44
PROVIDERS: Urology
DX: R31.0 Gross hematuria (principal); Q61.02 Congenital multiple renal cysts; N40.0 Benign prostatic hyperplasia without lower urinary tract symptoms
CPT/HCPCS: 36415; 74178; 80048; 96360; 96361; Q9967